=== PATIENT | female | born 1950 | race Caucasian/White ===

== ENCOUNTER 2017-01-02 13:42 | Observation (INO) | payer MEDICARE, OTHER ==
[~2017-01-02] VITALS: Ht 165.1 cm; Wt 88.1 kg
[2017-01-02 16:05] LABS: HEMOGLOBIN 11.1 gm/dl (12.3-15.3); RED BLOOD COUNT 3.98 M/UL (4.00-5.10); WHITE BLOOD COUNT 12.4 K/UL (4.5-11.0)
[2017-01-02] MEDS ORDERED: LANTUS100 UNIT/1 SQ ×2 (20:23→20:24)
[2017-01-02] MEDS ORDERED: NOVOLIN R100 UNIT/1 SQ (20:24)
[2017-01-02] MEDS ORDERED: HYDRALAZINE HCL50 MG PO (20:25)
[2017-01-02] MEDS ORDERED: NORVASC 5 MG TAB5 MG PO (20:25)
[2017-01-02] MEDS ORDERED: SYNTHROID150 MCG PO (20:26)
[2017-01-02] MEDS ORDERED: CELEXA 20MG TAB20 MG PO (20:26)
[2017-01-02] MEDS ORDERED: LASIX 40 MG TAB40 MG PO (20:27)
[2017-01-02] MEDS ORDERED: ISORDIL TAB 3030 MG PO (20:27)
[2017-01-02] MEDS ORDERED: COREG 25MG TAB25 MG PO (20:44)
[2017-01-03 04:42] LABS: HEMOGLOBIN 10.3 gm/dl (12.3-15.3); RED BLOOD COUNT 3.67 M/UL (4.00-5.10)
[2017-01-03] MEDS ORDERED: ASPIRIN81 MG PO (17:58)
== END 2017-01-03 18:30 | disposition home or self-care (01) ==
LOC: ER1 13:42 → ZEROF 17:38 → M/S 20:26 → CCU 01-03 00:27
PROVIDERS: Specialist/Technologist Athletic Trainer; ADMIT Internal Medicine
DX: R79.89 Other specified abnormal findings of blood chemistry (principal); R06.02 Shortness of breath; N17.9 Acute kidney failure, unspecified; N18.4 Chronic kidney disease, stage 4 (severe); E66.01 Morbid (severe) obesity due to excess calories; E03.9 Hypothyroidism, unspecified; E11.22 Type 2 diabetes mellitus with diabetic chronic kidney disease; I12.9 Hypertensive chronic kidney disease with stage 1 through stage 4 chronic kidney disease, or unspecified chronic kidney disease; E78.5 Hyperlipidemia, unspecified; I25.10 Atherosclerotic heart disease of native coronary artery without angina pectoris; Z79.4 Long term (current) use of insulin; Z79.891 Long term (current) use of opiate analgesic; Z79.899 Other long term (current) drug therapy; Z98.61 Coronary angioplasty status; Z90.49 Acquired absence of other specified parts of digestive tract; Z90.710 Acquired absence of both cervix and uterus
CPT/HCPCS: ECHO; 36415; 36600; 71250; 78452; 80048; 80053; 82550; 82553; 82570; 82803; 82962; 83605; 83874; 83880; 84156; 84484; 85025; 85027; 93005; 93017; 93306; 96374; 99285; A9502; G0378; J1644; J1940; J2785; J7030

== ENCOUNTER → 2017-03-06 | Outpatient (CLI) | payer MEDICARE, OTHER ==
[~2017-03-06] MED LIST: ASPIRIN81 MG PO; CELEXA 20MG TAB20 MG PO; COREG 25MG TAB25 MG PO; HYDRALAZINE HCL50 MG PO; ISORDIL TAB 3030 MG PO; LANTUS100 UNIT/1 SQ; LASIX 40 MG TAB40 MG PO; NORVASC 5 MG TAB5 MG PO; NOVOLIN R100 UNIT/1 SQ; SYNTHROID150 MCG PO
== END ==
LOC: SLEEP-COR 15:22
DX: G47.33 Obstructive sleep apnea (adult) (pediatric) (principal)
CPT/HCPCS: 95810